=== PATIENT | male | born 1975 | race Caucasian/White ===

== ENCOUNTER 2017-10-27 10:06 | Emergency (ER) | payer BC ==
[~2017-10-27] VITALS: Ht 175.3 cm; Wt 117.9 kg
[2017-10-27] MEDS ORDERED: ASPIRIN ENTERIC COATED 325 MG TABLET.DR. PO ONE (10:30)
--- NOTE | 2017-10-27 10:30 | PHYS DOC ---
Past Medical History Past Medical History: Hypertension Adult General Chief Complaint Chief Complaint: HYPERTENSION HPI HPI Patient is a 42 year old male who presents from urgent care for accelerated hypertension. Patient states he has a history of hypertension but has been taking his medications for the last 7-8 months. He states that's why he went to the urgent care today. He does report he said some "pinches" of chest pain that lasts for seconds and then resolved, substernal, nonradiating, no associated shortness of breath. However patient states he has had some mild shortness of breath, mild orthopnea, no edema, no history of CHF Treasure no history of PE or DVT , no prolonged immobilization or recent surgery. He does not actively follow with primary care physician. Active symptoms at this time. He was sent here due to his pressure. Review of Systems Review of Systems Constitutional: Denies fever or chills [] Eyes: Denies change in visual acuity, redness, or eye pain [] HENT: Denies nasal congestion or sore throat [] Respiratory: Denies cough Cardiovascular: Denies active chest pain GI: Denies abdominal pain, nausea, vomiting, bloody stools or diarrhea [] : Denies dysuria or hematuria [] Musculoskeletal: Denies back pain or joint pain [] Integument: Denies rash or skin lesions [] Neurologic: Denies headache, focal weakness or sensory changes [] Current Medications Current Medications Current Medications Medications (Trade) Dose Ordered Sig/Arnoldo Start Time Stop Time Status Last Admin Dose Admin Amlodipine Besylate (Norvasc) 5 mg 1X ONCE 10/27/17 11:00 10/27/17 11:01 DC 10/27/17 11:06 5 MG Aspirin (Ecotrin) 325 mg 1X ONCE 10/27/17 10:30 10/27/17 10:31 DC 10/27/17 10:37 325 MG Lisinopril (Prinivil) 10 mg 1X ONCE 10/27/17 11:00 10/27/17 11:01 DC 10/27/17 11:07 10 MG Allergies Allergies Allergies Coded Allergies Type Severity Reaction Last Updated Verified No Known Drug Allergies 10/27/17 No Physical Exam Physical Exam Constitutional: Well developed, well nourished, no acute distress, non-toxic appearance.obese HENT: Normocephalic, atraumatic, bilateral external ears normal, oropharynx moist, no oral exudates, nose normal. [] Eyes: PERRLA, EOMI, conjunctiva normal, no discharge. [] Neck: Normal range of motion, no tenderness, supple, no stridor. [] Cardiovascular:Heart rate tachy with regular rhythm, no murmur [] Lungs & Thorax: Bilateral breath sounds clear to auscultation , no wheeze or crackles Abdomen: Bowel sounds normal, soft, no tenderness, no masses, no pulsatile masses. [] Skin: Warm, dry, no erythema, no rash. [] Back: No tenderness, no CVA tenderness. [] Extremities: No tenderness, no cyanosis, no clubbing, ROM intact, no edema. neg homen's bilaterally Neurologic: Alert and oriented X 3, normal motor function, normal sensory function, no focal deficits noted. [] Psychologic: Affect normal, judgement normal, mood normal. [] Current Patient Data Vital Signs Vital Signs Date Time Temp Pulse Resp B/P (MAP) Pulse Ox O2 Delivery O2 Flow Rate FiO2 10/27/17 11:07 163/109 10/27/17 10:10 98.3 106 22 97 Room Air 98.3 Lab Values Laboratory Tests Test 10/27/17 10:30 White Blood Count 13.5 x10^3/uL (4.0-11.0) H Red Blood Count 5.29 x10^6/uL (4.30-5.70) Hemoglobin 15.6 g/dL (13.0-17.5) Hematocrit 45.9 % (39.0-53.0) Mean Corpuscular Volume 87 fL (79-100) Mean Corpuscular Hemoglobin 29 pg (25-35) Mean Corpuscular Hemoglobin Concent 34 g/dL (31-37) Red Cell Distribution Width 14.1 % (11.5-14.5) Platelet Count 270 x10^3/uL (140-400) Neutrophils (%) (Auto) 65 % (31-73) Lymphocytes (%) (Auto) 28 % (24-48) Monocytes (%) (Auto) 6 % (0-9) Eosinophils (%) (Auto) 1 % (0-3) Basophils (%) (Auto) 0 % (0-3) Neutrophils # (Auto) 8.7 x10^3uL (1.8-7.7) H Lymphocytes # (Auto) 3.8 x10^3/uL (1.0-4.8) Monocytes # (Auto) 0.9 x10^3/uL (0.0-1.1) Eosinophils # (Auto) 0.1 x10^3/uL (0.0-0.7) Basophils # (Auto) 0.1 x10^3/uL (0.0-0.2) Prothrombin Time 12.4 SEC (11.7-14.0) Prothrombin Time INR 1.0 (0.8-1.1) D-Dimer (Kayla) 0.27 ug/mlFEU (0.00-0.50) Sodium Level 140 mmol/L (136-145) Potassium Level 3.8 mmol/L (3.5-5.1) Chloride Level 103 mmol/L (98-107) Carbon Dioxide Level 29 mmol/L (21-32) Anion Gap 8 (6-14) Blood Urea Nitrogen 17 mg/dL (8-26) Creatinine 1.2 mg/dL (0.7-1.3) Estimated GFR (Cockcroft-Gault) 66.7 BUN/Creatinine Ratio 14 (6-20) Glucose Level 94 mg/dL (70-99) Calcium Level 9.2 mg/dL (8.5-10.1) Magnesium Level 1.9 mg/dL (1.8-2.4) Total Bilirubin 0.4 mg/dL (0.2-1.0) Aspartate Amino Transferase (AST) 20 U/L (15-37) Alanine Aminotransferase (ALT) 58 U/L (16-63) Alkaline Phosphatase 96 U/L (46-116) Troponin I Quantitative < 0.017 ng/mL (0.000-0.055) II-Msa-C-Type Natriuretic Peptide 50 pg/mL (0-124) Total Protein 7.8 g/dL (6.4-8.2) Albumin 4.0 g/dL (3.4-5.0) Albumin/Globulin Ratio 1.1 (1.0-1.7) Laboratory Tests 10/27/17 10:30 Laboratory Tests 10/27/17 10:30 EKG EKG 93 bpm, sinus, normal axis, normal intervals, no ST elevation or depression, nonischemic T waves, interpreted by me[] Radiology/Procedures Radiology/Procedures CXR: IMPRESSION: No radiographic evidence of an acute cardiopulmonary process. [] Course & Med Decision Making Course & Med Decision Making Pertinent Labs and Imaging studies reviewed. (See chart for details) Patient's blood pressure improved without intervention. Patient was given 5 mg amlodipine, 10 mg lisinopril here in the ED. No acute findings on ED workup. Counseled patient on taking blood pressure medication, scheduled follow-up to primary care physician. Discharged with amlodipine/Benzapril combination drug. Resources given. Dragon Disclaimer Dragon Disclaimer This electronic medical record was generated, in whole or in part, using a voice recognition dictation system. Departure Departure Impression: Primary Impression: Accelerated hypertension Disposition: HOME, SELF-CARE Condition: STABLE Scripts Amlodipine Besylate/Benazepril (AMLODIPINE-BENAZEPRIL 5-10 MG) 1 Each Capsule 1 CAP PO DAILY, #30 CAP 0 Refills Prov: VINNIE ELY MD 10/27/17 VINNIE ELY MD Oct 27, 2017 10:30
--- NOTE | 2017-10-27 10:31 | EKG ---
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
[2017-10-27 10:47] LABS: BASO # 0.1 x10^3/uL (0.0-0.2); BASO % 0 % (0-3); EOS % 1 % (0-3); HEMATOCRIT 45.9 % (39.0-53.0); HEMOGLOBIN 15.6 g/dL (13.0-17.5); LYMPH # 3.8 x10^3/uL (1.0-4.8); LYMPH % 28 % (24-48); MEAN CORPUSCULAR HEMOGLOBIN 29 pg (25-35); MEAN CORPUSCULAR HGB CONC 34 g/dL (31-37); MEAN CORPUSCULAR VOLUME 87 fL (79-100); MONO % 6 % (0-9); NEUT % 65 % (31-73); PLATELET COUNT 270 x10^3/uL (140-400); RED BLOOD COUNT 5.29 x10^6/uL (4.30-5.70); RED CELL DISTRIBUTION WIDTH 14.1 % (11.5-14.5); WHITE BLOOD COUNT 13.5 x10^3/uL (4.0-11.0)
[2017-10-27 10:49] LABS: CALCIUM 9.2 mg/dL (8.5-10.1); CREATININE 1.2 mg/dL (0.7-1.3); GFR 66.7; POTASSIUM 3.8 mmol/L (3.5-5.1)
[2017-10-27 10:55] LABS: ALBUMIN/GLOBULIN RATIO 1.1 (1.0-1.7); MAGNESIUM 1.9 mg/dL (1.8-2.4); TOTAL BILIRUBIN 0.4 mg/dL (0.2-1.0); TOTAL PROTEIN 7.8 g/dL (6.4-8.2)
[2017-10-27] MEDS ORDERED: LISINOPRIL 10 MG TABLET PO ONE (11:00)
[2017-10-27] MEDS ORDERED: amLODIPine BESYLATE 5 MG TABLET PO ONE (11:00)
--- NOTE | 2017-10-27 11:01 | RAD ---
EXAM: CHEST 1 VIEW History: Chest pain, high blood pressure COMPARISON: None available. TECHNIQUE: Single portable radiograph of the chest FINDINGS: The cardiac silhouette is unremarkable. The lungs are clear bilaterally. The costophrenic sulci are clear and well demarcated. IMPRESSION: No radiographic evidence of an acute cardiopulmonary process.
[2017-10-27 11:07] LABS: PROTHROMBIN TIME PATIENT 12.4 SEC (11.7-14.0)
[2017-10-27] MEDS ORDERED: AMLO1CAP8 PO (11:23)
[2017-10-27 11:30] VITALS: BP 164/104
== END 2017-10-27 11:49 | disposition home or self-care (01) ==
LOC: ER 10:06
DX: I10 Essential (primary) hypertension (principal)
CPT/HCPCS: 36415; 71010; 80053; 83735; 83880; 84484; 85025; 85379; 85610; 93005; 99285

== ENCOUNTER 2018-11-09 17:14 | Inpatient (IN) | payer BC ==
[~2018-11-09] VITALS: Ht 175.3 cm; Wt 121.6 kg
[~2018-11-09 17:14] MED LIST: AMLO1CAP8 PO
[2018-11-09] MEDS ORDERED: OMEP20TA63 PO (18:03)
[2018-11-09] MEDS: IV DEXTROSE 5%-LACT RINGERS 1,000 ML IV SCH (18:18)
[2018-11-09] MEDS: methylPREDNISolone SOD SUCC PF 40 MG/ML VIAL. IV SCH (18:19)
[2018-11-09] MEDS: cefTRIAXone IV Push 1 GM VIAL. IVP SCH (18:20)
--- NOTE | 2018-11-09 18:29 | HP ---
ADMIT DATE: 11/09/2018 CHIEF COMPLAINT: Shortness of breath and fever. HISTORY OF PRESENT ILLNESS: A 43-year-old white male who has been ill for about 4 days with fatigue, cough, some sputum production and a few episodes of hemoptysis and mild diarrhea with nausea. There has been no vomiting, urinary tract symptoms, chilling, or overt chest pain, but he says he does have some discomfort when he takes a deep breath, more on the right side. Office evaluation raised the question of pneumonia. The flu test was negative and he was unable to provide a urine test. He was admitted because of mild hypoxia with an oxygen saturation of 88% on room air in the office. MEDICATIONS: Include Breo, ProAir, amlodipine, and omeprazole. ALLERGIES: HE HAS NO KNOWN ALLERGIES EXCEPT TO DUST AND WEEDS. SOCIAL HISTORY: He is a nonsmoker. He is single. He is employed, lives with family, nondrinker. FAMILY HISTORY: Unremarkable. REVIEW OF SYSTEMS: Unremarkable except as above. OBJECTIVE: ENT: He looks mildly dusky in the lips, otherwise is unremarkable. NECK: No masses, nodes or bruits. LUNGS: Decreased breath sounds with crackles in the right lower lobe. Mild dullness. No egophony. Mild tachypnea. CARDIOVASCULAR: Regular rate. Heart rate 120-130. No irregular beat or murmur. ABDOMEN: Obese, soft, benign and nontender. EXTREMITIES: Good pedal and radial pulses. No clubbing. No joint or skin lesions. NEUROLOGIC: Physiologic and nonfocal. ASSESSMENT: Febrile illness, suspect he has pneumonia with borderline hypoxemia. PLAN: Rocephin, azithromycin, chest x-ray, cultures, labs and respiratory treatments. We will give a dose of steroids as he is an asthmatic as well. DARIAN BAUMANN MD DR: IFEOMA/kylee JOB#: [id number] / [id number]
[2018-11-09 19:00] VITALS: BP 120/77
[2018-11-09 19:18] LABS: BASO # 0.1 x10^3/uL (0.0-0.2); BASO % 0 % (0-3); EOS % 0 % (0-3); HEMOGLOBIN 13.2 g/dL (13.0-17.5); LYMPH # 1.1 x10^3/uL (1.0-4.8); LYMPH % 8 % (24-48); MEAN CORPUSCULAR HEMOGLOBIN 30 pg (25-35); MEAN CORPUSCULAR HGB CONC 35 g/dL (31-37); MEAN CORPUSCULAR VOLUME 86 fL (79-100); MONO # 0.6 x10^3/uL (0.0-1.1); MONO % 4 % (0-9); NEUT # 12.3 x10^3uL (1.8-7.7); NEUT % 88 % (31-73); PLATELET COUNT 172 x10^3/uL (140-400); RED BLOOD COUNT 4.44 x10^6/uL (4.30-5.70); RED CELL DISTRIBUTION WIDTH 13.7 % (11.5-14.5)
[2018-11-09 19:28] LABS: ALBUMIN 2.4 g/dL (3.4-5.0); ALBUMIN/GLOBULIN RATIO 0.5 (1.0-1.7); CALCIUM 8.6 mg/dL (8.5-10.1); CREATININE 2.6 mg/dL (0.7-1.3); GFR 27.2; POTASSIUM 3.3 mmol/L (3.5-5.1); TOTAL BILIRUBIN 0.6 mg/dL (0.2-1.0); TOTAL PROTEIN 7.1 g/dL (6.4-8.2)
[2018-11-09] MEDS: AZITHROMYCIN 500 MG in IV NORMAL SALINE 250ML 250 ML IV SCH (20:10)
[2018-11-09] MEDS: IPRATRPIUM/ALBUTEROL 0.5/2.5MG 3 ML NEBU. NEB SCH (20:35)
[2018-11-09 20:58] LABS: % BANDS 9 % (0-9); % LYMPHS 9 % (24-48); % MONOS 4 % (0-10); % SEGS 78 % (35-66)
[2018-11-09 20:59] LABS: PLT ESTIMATE ADEQUATE (ADEQUATE)
[2018-11-09 23:00] VITALS: BP 121/75
[2018-11-10] MEDS: IV DEXTROSE 5%-LACT RINGERS 1,000 ML IV SCH ×4 (02:42→22:59)
[2018-11-10 03:00] VITALS: BP 125/84
[2018-11-10 07:15] VITALS: BP 129/69
--- NOTE | 2018-11-10 07:51 | PDOC ---
Provider Note Provider Note [id number] DARIAN BAUMANN MD Nov 10, 2018 07:51
[2018-11-10] MEDS: IPRATRPIUM/ALBUTEROL 0.5/2.5MG 3 ML NEBU. NEB SCH ×4 (07:52→20:20)
[2018-11-10] MEDS ORDERED: DEXTROSE 50% 25 GM / 50ML DISP.SYRIN. IV PRN (08:00)
[2018-11-10 08:02] LABS: BILIRUBIN,URINE NEGATIVE (NEG); CLARITY,URINE CLEAR; COLOR,URINE AMBER; NITRITE,URINE NEGATIVE (NEG); PH,URINE 5.5; PROTEIN,URINE 30 mg/dL (NEG-TRACE); UROBILINOGEN,URINE 0.2 mg/dL (0.2 mg/dL)
[2018-11-10 08:16] LABS: HYALINE CASTS, URINE FEW /HPF; SQUAMOUS EPITHELIAL CELL,UR FEW /LPF
[2018-11-10 08:17] LABS: AMORPHOUS SEDIMENT,UR PRESENT /HPF; BACTERIA,URINE FEW /HPF (0-FEW)
--- NOTE | 2018-11-10 08:25 | PN ---
DATE: 11/10/2018 SUBJECTIVE: The patient states he feels a little better with less cough and no more hemoptysis. He is drinking fluids and urinating fairly freely. No vomiting or any more nausea and he slept better than normal. He is afebrile with blood pressures pretty good and his heart rate is definitely slower around 100 than he was in the office. Labs showed leukocytosis, very high procalcitonin, sodium and potassium were both low and he has got a certain degree of renal insufficiency which is new. Chest x-ray showed no aggressive infiltrates, but certainly the exam sounds like he has got a right lower lobe pneumonia on physical exam. We will continue IV fluids, Rocephin and Zithromax. We will check urine antigen for Legionella and follow renal function, but I think he will recover with fluids and off of his blood pressure meds for now. We will add daily Lovenox for DVT prophylaxis and pantoprazole that he normally takes at home. Q.i.d. breathing treatments should replace his inhalers as well. DARIAN BAUMANN MD DR: IFEOMA/kylee JOB#: [id number] / [id number]
--- NOTE | 2018-11-10 08:34 | RAD ---
CHEST AP ONLY History: PNEUMONIA, recent cough, shortness of air, nausea for 5 days Comparison: October 27, 2017 Findings: Single view of the chest is submitted. There is patchy infiltrate of the mid to superior right hemithorax, also right lung base. Pericardial cardiac silhouette is likely enlarged although could be accentuated by technique, may be somewhat larger than previously. Hazy airspace opacity left lung base is not excluded. There is no pneumothorax or significant dependent pleural fluid. Impression: 1. There is patchy infiltrate of the right hemithorax. 2. There is appearance of more prominent pericardial cardiac silhouette, although could be accentuated by technique. Electronically signed by: Dirk Guzman MD (11/10/2018 8:30 AM) [id number]
[2018-11-10] MEDS: PANTOPRAZOLE 40 MG TABLET.DR. PO SCH (08:39)
[2018-11-10] MEDS: ENOXAPARIN 40 MG/0.4 ML SYRINGE. SQ SCH (08:39)
[2018-11-10] MEDS: methylPREDNISolone SOD SUCC PF 40 MG/ML VIAL. IV SCH (08:40)
[2018-11-10 09:47] LABS: BASO % 0 % (0-3); EOS % 0 % (0-3); HEMATOCRIT 38.4 % (39.0-53.0); HEMOGLOBIN 13.3 g/dL (13.0-17.5); LYMPH # 0.8 x10^3/uL (1.0-4.8); LYMPH % 4 % (24-48); MEAN CORPUSCULAR HEMOGLOBIN 30 pg (25-35); MEAN CORPUSCULAR HGB CONC 35 g/dL (31-37); MEAN CORPUSCULAR VOLUME 86 fL (79-100); MONO # 0.6 x10^3/uL (0.0-1.1); MONO % 3 % (0-9); NEUT # 18.1 x10^3uL (1.8-7.7); NEUT % 93 % (31-73); PLATELET COUNT 163 x10^3/uL (140-400); RED BLOOD COUNT 4.49 x10^6/uL (4.30-5.70); RED CELL DISTRIBUTION WIDTH 13.7 % (11.5-14.5); WHITE BLOOD COUNT 19.5 x10^3/uL (4.0-11.0)
[2018-11-10 09:58] LABS: CALCIUM 9.1 mg/dL (8.5-10.1); CREATININE 1.8 mg/dL (0.7-1.3); GFR 41.6; POTASSIUM 3.5 mmol/L (3.5-5.1)
[2018-11-10 11:00] VITALS: BP 120/76
[2018-11-10] MEDS ORDERED: INSULIN GLARGINE 300 UNITS/3 ML INSULN.PEN. SQ ONE (13:15)
[2018-11-10 15:14] VITALS: BP 134/76
[2018-11-10] MEDS: cefTRIAXone IV Push 1 GM VIAL. IVP SCH (18:12)
[2018-11-10 19:00] VITALS: BP 158/108
[2018-11-10] MEDS: AZITHROMYCIN 500 MG in IV NORMAL SALINE 250ML 250 ML IV SCH (20:44)
[2018-11-10] MEDS: LACTOBACILLUS RHAMNOSUS GG 1 CAPSULE. PO SCH (20:44)
[2018-11-10 23:00] VITALS: BP 123/76
[2018-11-11 03:00] VITALS: BP 162/95
[2018-11-11 07:00] VITALS: BP 108/64
[2018-11-11 07:07] LABS: CALCIUM 9.1 mg/dL (8.5-10.1); CREATININE 1.4 mg/dL (0.7-1.3); GFR 55.6; POTASSIUM 3.8 mmol/L (3.5-5.1)
[2018-11-11] MEDS: IV DEXTROSE 5%-LACT RINGERS 1,000 ML IV SCH (07:11)
[2018-11-11] MEDS: IPRATRPIUM/ALBUTEROL 0.5/2.5MG 3 ML NEBU. NEB SCH ×4 (07:52→19:06)
[2018-11-11] MEDS: PANTOPRAZOLE 40 MG TABLET.DR. PO SCH (08:04)
[2018-11-11] MEDS: LACTOBACILLUS RHAMNOSUS GG 1 CAPSULE. PO SCH ×2 (08:04→21:37)
[2018-11-11] MEDS: ENOXAPARIN 40 MG/0.4 ML SYRINGE. SQ SCH (08:05)
--- NOTE | 2018-11-11 08:05 | PDOC ---
Provider Note Provider Note vss, O2 better , bp good , no more temp- renal fx recovering well, Na+ ok now- urinary LG pending as are BC but neg so far- dc iv fluid,steroids, walk more, poss dc in am, DARIAN BAUMANN MD Nov 11, 2018 08:05
[2018-11-11 10:55] VITALS: BP 110/72
[2018-11-11] MEDS: BUDESONIDE 0.5 MG/2 ML NEBU. NEB SCH ×2 (11:45→19:06)
[2018-11-11 13:37] LABS: BILIRUBIN,URINE NEGATIVE (NEG); CLARITY,URINE CLEAR; COLOR,URINE YELLOW; NITRITE,URINE NEGATIVE (NEG); PROTEIN,URINE NEGATIVE (NEG-TRACE); UROBILINOGEN,URINE 0.2 mg/dL (0.2 mg/dL)
[2018-11-11 13:54] LABS: BACTERIA,URINE 0 /HPF (0-FEW); RBC,URINE RARE /HPF (0-2); WBC,URINE RARE /HPF (0-4)
[2018-11-11 14:28] VITALS: BP 112/74
[2018-11-11] MEDS: cefTRIAXone IV Push 1 GM VIAL. IVP SCH (17:41)
[2018-11-11 19:00] VITALS: BP 123/68
[2018-11-11 20:12] LABS: HEMOGLOBIN A1C 5.7 % (4.8-5.6)
[2018-11-11] MEDS: AZITHROMYCIN 500 MG in IV NORMAL SALINE 250ML 250 ML IV SCH (20:12)
[2018-11-11] MEDS ORDERED: INSULIN GLARGINE 300 UNITS/3 ML INSULN.PEN. SQ SCH (21:00)
[2018-11-11 23:00] VITALS: BP 153/98
[2018-11-12 03:00] VITALS: BP 137/95
[2018-11-12 07:00] VITALS: BP 129/77
[2018-11-12] MEDS: BUDESONIDE 0.5 MG/2 ML NEBU. NEB SCH (07:52)
[2018-11-12] MEDS: IPRATRPIUM/ALBUTEROL 0.5/2.5MG 3 ML NEBU. NEB SCH (07:52)
--- NOTE | 2018-11-12 08:12 | DISCH ---
DISCHARGE INSTRUCTIONS Condition on Discharge Condition on Discharge: Stable Activity After Discharge Activity Instructions for Disc: No restrictions Diet after Discharge Diet after Discharge: Regular Follow-Up Follow up with: dr erasto Roberson w DARIAN BAUMANN MD Nov 12, 2018 08:12
--- NOTE | 2018-11-12 08:16 | PDOC ---
Provider Note Provider Note [id number] DARIAN BAUMANN MD Nov 12, 2018 08:16
--- NOTE | 2018-11-12 08:26 | DS ---
DATE OF DISCHARGE: 11/12/2018 HOSPITAL SUMMARY: The patient was admitted with weakness, fatigue and symptoms consistent with pneumonia. Chest x-ray showed right-sided infiltrates. The sodium was low at 124, potassium low at 3.3, BUN high at 38, creatinine at 2.6. Sodium, potassium and renal functional all normalized with fluid hydration. White count was elevated. Procalcitonin was very high and the urinary legionella antigen is pending at this time. He was given IV fluids and his renal function improved with hydration. He was given Rocephin and Zithromax and he has been afebrile, feeling better and improving oxygen saturations. He is comfortable to be discharged and followed as an outpatient at this point. FINAL DIAGNOSES: 1. Community-acquired pneumonia, suspect legionella. 2. Hyponatremia and hypokalemia, resolved. 3. Acute kidney injury secondary to pneumonia, resolved. OPERATIONS, PROCEDURES, COMPLICATIONS, AND CONSULTATIONS: None. DISPOSITION: No new medications will be given. Home meds remain the same. We will see him in 1 week in followup and follow up on the urinary legionella antigen. We will use further azithromycin or doxycycline if symptoms recur. He was unable to receive pneumococcal vaccine in the hospital and this will be given in the office. DARIAN BAUMANN MD DR: IFEOMA/nts JOB#: [id number] / [id number]
== END 2018-11-12 09:20 | disposition home or self-care (01) | DRG 194 ==
LOC: 5 SOUTH 17:30
PROVIDERS: ADMIT Family Medicine; ATTEND Family Medicine
DX: J18.9 Pneumonia, unspecified organism (principal); E87.1 Hypo-osmolality and hyponatremia; N17.9 Acute kidney failure, unspecified; E87.6 Hypokalemia
CPT/HCPCS: 36415; 71045; 80048; 80053; 81001; 82962; 83036; 83605; 84145; 85007; 85025; 87040; 87449; 94640; 94760; A4615; J0456; J0696; J1650; J1815; J2920; J7050; J7620; J7626; 97116; 97530; 97535; J7030